=== PATIENT | female | born 1970 | race Caucasian/White ===

== ENCOUNTER 2018-03-05 19:59 | Emergency (ER) | payer OTHER ==
[~2018-03-05] VITALS: Ht 167.6 cm; Wt 83.5 kg
[2018-03-05 20:01] VITALS: BP 132/87
[2018-03-05] MEDS ORDERED: PROPARACAINE OPHTH 0.5%, 15ML ONE (20:58)
[2018-03-05] MEDS ORDERED: PROPARACAINE OPHTH 0.5%, 15ML EACHEYE ONE (21:00)
[2018-03-05] MEDS ORDERED: FLUORESCEIN OPHTHALMIC 1 MG STRIP EACHEYE ONE (21:00)
== END 2018-03-05 22:04 | disposition home or self-care (01) ==
LOC: ED 20:30
DX: H18.823 Corneal disorder due to contact lens, bilateral (principal)
CPT/HCPCS: 99283